=== PATIENT | female | born 1975 | race Caucasian/White ===

== ENCOUNTER 2018-04-12 12:43 | Emergency (ER) | payer SELFPAY | END 2018-04-12 15:01 | disposition home or self-care (01) | LOC: ER 15:01 | DX: S82.61XA Displaced fracture of lateral malleolus of right fibula, initial encounter for closed fracture (principal); Z88.8 Allergy status to other drugs, medicaments and biological substances; X50.1XXA Overexertion from prolonged static or awkward postures, initial encounter; Y93.01 Activity, walking, marching and hiking; Y92.89 Other specified places as the place of occurrence of the external cause; Y99.8 Other external cause status | CPT/HCPCS: 29515; 73610; 99283; 99284 ==

== ENCOUNTER → 2018-04-21 | Day surgery (SDC) | payer SELFPAY ==
[~2018-04-21] MED LIST: DEXAMETHASONE SOD PHOS 20 MG/5 ML VIAL.; FAMOTIDINE 20 MG/2 ML VIAL; IV RINGERS,LACTATED 1000ML 1,000 ML IV; LIDOCAINE 1% PF 2 ML VIAL. ID; LIDOCAINE 2% PF Vial for OR 5 ML VIAL.; MIDAZOLAM HCL/PF 2 MG/2 ML VIAL.; MORPHINE SULFATE 2 MG/ML DISP.SYRIN.; MORPHINE SULFATE 2 MG/ML DISP.SYRIN. IV; ONDANSETRON PF 4 MG/2 ML VIAL.; ONDANSETRON PF 4 MG/2 ML VIAL. IV; PROCHLORPERAZINE 10 MG/2 ML VIAL.; PROCHLORPERAZINE 10 MG/2 ML VIAL. IV; PROPOFOL 20 ML IV; SEVOFLURANE 61 TO 120 MINUTES. IH; ceFAZolin 2GM PREMIX 2 GM/50 ML BAG IV; fentaNYL PF VIAL 100 MCG/2 ML VIAL; fentaNYL PF VIAL 100 MCG/2 ML VIAL IV; oxyCODONE/APAP 5/325 1 TAB TABLET PO
[2018-04-21] MEDS: IV RINGERS,LACTATED 1000ML 1,000 ML IV (10:44)
[2018-04-21 10:48] LABS: NEG OBC UR NEG; POS OBC UR POS; U PREG PATIENT NEGATIVE (NEG)
[2018-04-21] MEDS: BUPIVACAINE 0.5% 50 ML VIAL. (12:05)
[2018-04-21] MEDS: LIDOCAINE 1% PF 30 ML VIAL. (12:05)
[2018-04-21] MEDS: fentaNYL PF VIAL 100 MCG/2 ML VIAL IV ×2 (13:21→13:27)
[2018-04-21] MEDS: MORPHINE SULFATE 2 MG/ML DISP.SYRIN. IV ×2 (13:55→14:06)
== END | disposition home or self-care (01) ==
LOC: SURG 10:06
DX: S82.61XA Displaced fracture of lateral malleolus of right fibula, initial encounter for closed fracture (principal); K21.9 Gastro-esophageal reflux disease without esophagitis; Z90.49 Acquired absence of other specified parts of digestive tract; Z87.442 Personal history of urinary calculi; Z87.891 Personal history of nicotine dependence; Z79.899 Other long term (current) drug therapy; Z88.8 Allergy status to other drugs, medicaments and biological substances; X50.1XXA Overexertion from prolonged static or awkward postures, initial encounter; Y93.89 Activity, other specified; Y92.89 Other specified places as the place of occurrence of the external cause; Y99.8 Other external cause status
CPT/HCPCS: 27792; 76000; 81025; A7015; C1713; J0690; J0780; J1100; J2001; J2250; J2270; J2405; J2704; J3010; J3490; J7120; S0028